=== PATIENT | female | born 1995 | race Caucasian/White ===

== ENCOUNTER 2017-03-09 19:13 | Emergency (ER) | payer OTHER ==
[2017-03-09 19:39] VITALS: TEMP 98.4
--- NOTE | 2017-03-09 20:25 | C.PDOC ---
Chief Complaint (Nursing): Chest Pain Past Medical History Vital Signs: Last Vital Signs Temp 98.4 F 03/09/17 19:36 Pulse 90 03/09/17 19:36 Resp 20 03/09/17 19:36 BP 113/34 L 03/09/17 19:36 Pulse Ox 100 03/09/17 19:36 - Medical History PMH: Depression Denies: Diabetes, Hepatitis, HIV, HTN, Chronic Kidney Disease, Seizures, Sexually Transmitted Disease Family History: States: Unknown Family Hx - Social History Hx Alcohol Use: No Hx Substance Use: No - Immunization History Hx Tetanus Toxoid Vaccination: Yes Hx Influenza Vaccination: Yes Hx Pneumococcal Vaccination: Yes ED Course And Treatment ECG: Interpreted By Me, Viewed By Me ECG Rhythm: Sinus Rhythm ECG Interpretation: No Acute Changes Interpretation Of ECG: NSR with sinus arrythmia, possible LAE, borderline tracings Rate From EC O2 Sat by Pulse Oximetry: 100 Pulse Ox Interpretation: Normal Disposition - Disposition
--- NOTE | 2017-03-09 20:27 | C.PDOC ---
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 Denies SOB, nausea, or vomiting. Chief Complaint (Nursing): Chest Pain History Per: Patient History/Exam Limitations: no limitations Onset/Duration Of Symptoms: Days, Intermittent Episodes Current Symptoms Are (Timing): Still Present Associated Symptoms: denies: Nausea, Dyspnea, Diaphoresis, Syncope Modifying Factors: None Exacerbating Factors: None Alleviating Factors: None Recent travel outside of the [place]: No Past Medical History Reviewed: Historical Data, Nursing Documentation, Vital Signs Vital Signs: Last Vital Signs Temp 98.4 F 03/09/17 19:36 Pulse 84 03/09/17 20:30 Resp 20 03/09/17 19:36 BP 113/34 L 03/09/17 19:36 Pulse Ox 100 03/09/17 20:33 - Medical History PMH: Depression Surgical History: No Surg Hx Family History: States: Unknown Family Hx - Social History Hx Alcohol Use: No Hx Substance Use: No - Immunization History Hx Tetanus Toxoid Vaccination: Yes Hx Influenza Vaccination: Yes Hx Pneumococcal Vaccination: Yes Review Of Systems Constitutional: Negative for: Fever, Chills Cardiovascular: Positive for: Chest Pain Respiratory: Negative for: Shortness of Breath Gastrointestinal: Negative for: Nausea, Vomiting Physical Exam - Physical Exam Appears: Non-toxic, No Acute Distress Skin: Normal Color, Warm, Dry Head: Atraumatic, Normacephalic Eye(s): bilateral: Normal Inspection Oral Mucosa: Moist Chest: Symmetrical, Tenderness (Anterior wall) Cardiovascular: Rhythm Regular Respiratory: Normal Breath Sounds, No Rales, No Rhonchi, No Wheezing Gastrointestinal/Abdominal: Soft, Tenderness (Mild epigastric), No Distention, No Guarding, No Rebound Neurological/Psych: Oriented x3, Normal Speech, Other (No focal deficits) ED Course And Treatment - Laboratory Results Result Diagrams: 03/09/17 20:34 03/09/17 20:34 ECG: Interpreted By Me, Viewed By Me ECG Rhythm: Sinus Rhythm ECG Interpretation: No Acute Changes Interpretation Of ECG: NSR with sinus arrythmia, possible LAE, borderline tracings Rate From EC O2 Sat by Pulse Oximetry: 100 (Room air) Pulse Ox Interpretation: Normal Progress Note: EKG, blood work, CXR, and urinalysis ordered. Disposition Counseled Patient/Family Regarding: Diagnosis - Disposition Referrals: [facility] [Outside] Disposition: HOME/ ROUTINE Disposition Time: 22:43 Condition: STABLE Prescriptions: Naproxen 375 mg PO TIDPC #14 tablet Instructions: Chest Wall Pain (ED) Forms: [facility] (Lithuanian) - POA Present On Arrival: None - Clinical Impression Clinical Impression: Chest wall pain - Scribe Statement The provider has reviewed the documentation as recorded by the Scribalize Hoover All medical record entries made by the Caritoibalize were at my direction and personally dictated by me. I have reviewed the chart and agree that the record accurately reflects my personal performance of the history, physical exam, medical decision making, and the department course for this patient. I have also personally directed, reviewed, and agree with the discharge instructions and disposition.
[2017-03-09 20:43] LABS: BASO # 0.1 K/uL (0.0-0.2); BASO % 1.1 % (0.0-2.0); EOS % 0.2 % (0.0-4.0); HEMATOCRIT 37.7 % (34.0-47.0); LYMPH # 1.8 K/uL (1.0-4.3); LYMPH % 20.4 % (20.0-40.0); MEAN CELL VOLUME 85.5 fL (81.0-99.0); MEAN CORPUSCULAR HEMOGLOBIN 28.7 pg (27.0-31.0); MEAN CORPUSCULAR HGB CONC 33.6 g/dL (33.0-37.0); MEAN PLATELET VOLUME 8.3 fL (7.2-11.7); MONO # 0.8 K/uL (0.0-0.8); MONO % 9.5 % (0.0-10.0); NRBC % 0.1 % (0.0-2.0); RED CELL DISTRIBUTION WIDTH 13.6 % (11.5-14.5); WHITE BLOOD COUNT 8.9 K/uL (4.8-10.8)
[2017-03-09 21:07] LABS: BLOOD UREA NITROGEN 15 mg/dL (7-17); CARBON DIOXIDE 25 mmol/L (22-30); CHLORIDE 101 mmol/L (98-107); GFR AFRICAN-AMERICAN > 60; GLUCOSE,RANDOM 79 mg/dL (65-105); POTASSIUM 3.3 mmol/L (3.6-5.2); SODIUM 135 mmol/L (132-148)
[2017-03-09 21:08] LABS: ALB/GLOB RATIO 1.1 (1.0-2.1); ALKALINE PHOSPHATASE 43 U/L (38-126); ALT/SGPT 31 U/L (9-52); AST/SGOT 24 U/L (14-36); BILIRUBIN,TOTAL 0.8 mg/dL (0.2-1.3); CALCIUM 8.7 mg/dl (8.6-10.4)
[2017-03-09 23:07] VITALS: BP 110/85; PULSE 78; RESP 16; O2SAT 98
--- NOTE | 2017-03-10 09:03 | RAD ---
HISTORY: chest pain COMPARISON: Portable chest 05/28/2016. TECHNIQUE: Chest PA and lateral FINDINGS: LUNGS: Improved history effort identified. No interval pulmonary disease appreciable. PLEURA: No significant pleural effusion identified. No pneumothorax apparent. CARDIOVASCULAR: Normal. OSSEOUS STRUCTURES: No significant abnormalities. VISUALIZED UPPER ABDOMEN: Normal. OTHER FINDINGS: None. IMPRESSION: No interval acute cardiopulmonary disease appreciated.
--- NOTE | 2017-03-11 10:37 | CARD ---
APPROVED REPORT EKG Measurement Heart [id number] MI [id number] <Conclusion> Normal sinus rhythm with sinus arrhythmia Possible Left atrial enlargement Borderline ECG
== END 2017-03-09 23:06 | disposition home or self-care (01) ==
LOC: C.ER 19:13
DX: R07.89 Other chest pain (principal)

== ENCOUNTER 2017-12-23 15:14 | Emergency (ER) | payer SELFPAY ==
[2017-12-23 15:34] VITALS: TEMP 98; O2SAT 100
--- NOTE | 2017-12-23 15:58 | C.PDOC ---
History Of Present Illness 22 year old female with a past medical history of WPW presents to ED for evaluation of intermittent heart palpitations for 2 days. Patient states 2 days ago she had been drinking beer and then noticed her heart racing and felt lightheaded. Patient also reports her heart rate "spikes" during episodes and she notes a shaky sensation. States her last visit to health information clerk was in 2013. No palpitations present during visit. Denies abdomen pain, shortness of breath, chest pain, nausea, vomiting, dizziness, fever, and other associated symptoms. Time Seen by Provider: 12/23/17 15:20 Chief Complaint (Nursing): Palpitations History Per: Patient History/Exam Limitations: no limitations Onset/Duration Of Symptoms: Intermittent Episodes Current Symptoms Are (Timing): Gone Past Medical History Reviewed: Historical Data, Nursing Documentation, Vital Signs Vital Signs: Last Vital Signs Temp 98 F 12/23/17 15:19 Pulse 81 12/23/17 17:20 Resp 16 12/23/17 17:20 BP 117/84 12/23/17 17:20 Pulse Ox 100 12/23/17 17:20 - Medical History PMH: Depression Other PMH: WPW s/p cardiac ablation procedure Family History: States: Unknown Family Hx - Social History Hx Alcohol Use: Yes Hx Substance Use: No (DENIED) - Immunization History Hx Tetanus Toxoid Vaccination: Yes Hx Influenza Vaccination: Yes Hx Pneumococcal Vaccination: Yes Review Of Systems Constitutional: Negative for: Fever, Chills Cardiovascular: Positive for: Palpitations. Negative for: Chest Pain Respiratory: Negative for: Cough Gastrointestinal: Negative for: Nausea, Vomiting Physical Exam - Physical Exam Appears: Non-toxic, No Acute Distress Skin: Normal Color, Warm, Dry Head: Atraumatic, Normacephalic Eye(s): bilateral: Normal Inspection, EOMI Oral Mucosa: Moist Neck: Supple Chest: Symmetrical Cardiovascular: Rhythm Regular, No Murmur Respiratory: Normal Breath Sounds, No Rales, No Rhonchi, No Stridor Gastrointestinal/Abdominal: Bowel Sounds (active), Soft, No Tenderness, No Distention, No Guarding Extremity: Bilateral: Atraumatic, Normal Color And Temperature, Normal ROM Neurological/Psych: Oriented x3, Normal Speech Gait: Steady ED Course And Treatment - Laboratory Results Result Diagrams: 12/23/17 16:18 12/23/17 16:18 ECG: Interpreted By Me, Viewed By Me ECG Rhythm: Sinus Rhythm ECG Interpretation: Normal Interpretation Of ECG: Normal sinus rhythm Rate From EC O2 Sat by Pulse Oximetry: 100 (RA) Pulse Ox Interpretation: Normal Medical Decision Making Medical Decision Making: Plan: -EKG sent -Blood work sent -Chest X-ray -Urinalysis -Urine HCG Progress/Update: EKG reviewed by Dr. Corona and myself, appears normal sinus rhythm. CXR shows no active disease. Labs reviewed and unremarkable. Patient remained well in no distress. Denies any chest pain and had no cardiac arrhythmia on monitor. Patient stable for discharge. Patient advised to follow up with health information clerk. Disposition Counseled Patient/Family Regarding: Diagnosis, Need For Followup - Disposition [facility] [Outside] Disposition: HOME/ ROUTINE Disposition Time: 17:13 Condition: STABLE Additional Instructions: Follow up with your primary medical doctor, health information clerk or clinic in 2-5 days for further evaluation. Return to the emergency department at any time if symptoms persist or worsen. Instructions: Palpitations (DC) Forms: [facility] (Kyrgyz) - POA Present On Arrival: None - Clinical Impression Clinical Impression: Palpitations - PA / CHIEF PSYCHOLOGIST / Resident Statement MD/DO has reviewed & agrees with the documentation as recorded. - Scribe Statement The provider has reviewed the documentation as recorded by the Scribe (Sia Kowalski) All medical record entries made by the Scribe were at my direction and personally dictated by me. I have reviewed the chart and agree that the record accurately reflects my personal performance of the history, physical exam, medical decision making, and the department course for this patient. I have also personally directed, reviewed, and agree with the discharge instructions and disposition.
--- NOTE | 2017-12-23 16:22 | RAD ---
HISTORY: palpitations COMPARISON: Chest x-ray performed 03/09/17 TECHNIQUE: Chest PA and lateral FINDINGS: LUNGS: No focal consolidation. Please note that chest x-ray has limited sensitivity for the detection of pulmonary masses. PLEURA: No significant pleural effusion identified. No definite pneumothorax . CARDIOVASCULAR: The cardiomediastinal silhouette appears within normal limits of size. OSSEOUS STRUCTURES: No acute osseous abnormality identified. VISUALIZED UPPER ABDOMEN: Unremarkable. OTHER FINDINGS: None. IMPRESSION: No focal consolidation, significant pleural effusion, or definite pneumothorax identified.
[2017-12-23 16:24] LABS: HCG,QUALITATIVE URINE NEGATIVE (NEGATIVE)
[2017-12-23 16:25] LABS: BASO # 0.2 K/uL (0.0-0.2); BASO % 1.7 % (0.0-2.0); EOS # 0.1 K/uL (0.0-0.7); EOS % 0.7 % (0.0-4.0); HEMOGLOBIN 12.8 g/dL (11.0-16.0); LYMPH # 1.9 K/uL (1.0-4.3); LYMPH % 19.2 % (20.0-40.0); MEAN CELL VOLUME 85.1 fL (81.0-99.0); MEAN CORPUSCULAR HEMOGLOBIN 29.6 pg (27.0-31.0); MEAN CORPUSCULAR HGB CONC 34.8 g/dL (33.0-37.0); MEAN PLATELET VOLUME 8.2 fL (7.2-11.7); MONO % 9.8 % (0.0-10.0); NEUT # 6.7 K/uL (1.8-7.0); NEUT % 68.6 % (50.0-75.0); NRBC % 0.1 % (0.0-2.0); RBC 4.33 Mil/uL (3.80-5.20); RED CELL DISTRIBUTION WIDTH 13.6 % (11.5-14.5); WHITE BLOOD COUNT 9.7 K/uL (4.8-10.8)
[2017-12-23 16:31] LABS: SQUAMOUS EPITHIAL 6 /hpf (0-5); URINE BACTERIA OCC (<OCC); URINE BILIRUBIN NEGATIVE (NEGATIVE); URINE BLOOD NEGATIVE (NEGATIVE); URINE CLARITY Clear (Clear); URINE COLOR Yellow (YELLOW); URINE GLUCOSE (UA) NORMAL (Normal); URINE LEUKOCYTE ESTERASE 1+ Leu/uL (Negative); URINE PROTEIN NEGATIVE (NEGATIVE); URINE UROBILINOGEN NORMAL mg/dL (0.2-1.0)
[2017-12-23 16:38] LABS: ALB/GLOB RATIO 1.5 (1.0-2.1); ALBUMIN 4.7 g/dL (3.5-5.0); ALT/SGPT 20 U/L (9-52); AST/SGOT 17 U/L (14-36); BLOOD UREA NITROGEN 12 mg/dL (7-17); CALCIUM 9.3 mg/dl (8.6-10.4); GFR NON-AFRICAN AMERICAN > 60
[2017-12-23 17:03] LABS: BARBITURATES, UR NEGATIVE (NEGATIVE); BENZODIAZEPINES, UR NEGATIVE (NEGATIVE); OPIATES, UR NEGATIVE (NEGATIVE); PHENCYCLIDINE, UR NEGATIVE (NEGATIVE)
[2017-12-23 17:20] VITALS: BP 117/84; PULSE 81; RESP 16
--- NOTE | 2017-12-25 22:53 | CARD ---
APPROVED REPORT Date of service: 12/23/2017 EKG Measurement Heart [id number] MD 138P56 [id number] <Conclusion> Normal sinus rhythm Possible Left atrial enlargement T wave abnormality, consider anterior ischemia Abnormal ECG
== END 2017-12-23 17:21 | disposition home or self-care (01) ==
LOC: C.ER 15:14
DX: R00.2 Palpitations (principal); I45.6 Pre-excitation syndrome
CPT/HCPCS: 71046; 80053; 81001; 84439; 84443; 84484; 84703; 85025; 85610; 85730; 93005; 99284; G0480

== ENCOUNTER → 2018-05-17 22:43 | Emergency (ER) | payer SELFPAY | END | disposition left against medical advice (07) | LOC: C.ER 22:43 | DX: Z02.89 Encounter for other administrative examinations (principal); R51 Headache ==